=== PATIENT | female | born 1940 | race Caucasian/White ===

== ENCOUNTER 2016-08-26 01:42 | Emergency (ER) | payer OTHER ==
[~2016-08-26] VITALS: Ht 162.6 cm; Wt 69.0 kg
[2016-08-26 01:54] VITALS: Ht 162.6 cm; Wt 69.0 kg
[2016-08-26] MEDS ORDERED: ONDANSETRON INJ 2 MG/ML 2 ML VIAL ONE (02:08)
--- NOTE | 2016-08-26 02:20 | EMERGENCY ROOM VISIT NOTE ---
History Report prepared by Sonja: Wood Mcneill Under the Supervision of: Dr. Anna Read D.O. First contact with patient: 01:59 Chief Complaint: ABDOMINAL PAIN Stated Complaint: STOMACH PAIN,VOMITING History of Present Illness The patient is a 75 year old female who presents to the Emergency Room with complaints of persistent and severe abdominal pain that began at 2330 tonight, 2.5 hours prior to arrival. The pain is localized to the left lower abdominal quadrant. The patient states that she began to vomit persistently at this time as well. She claims that she felt fine throughout the day today and did not eat any unusual foods. She has not had a bowel movement for the past couple of days , which is unusual for her. She does have a history of diverticulitis and irritable bowel syndrome. 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 A total of 10 systems reviewed and were otherwise negative. Past Medical & Surgical Medical Problems: (1) Diabetes (2) HTN (hypertension) Diabetes HTN (hypertension) Family History Diabetes mellitus Heart disease Hypertension Social History Smoking Status: Former Smoker Drug Use: none Marital Status: Housing Status: lives with significant other Occupation Status: retired Current/Historical Medications Scheduled Amlodipine (Norvasc), 5 MG PO DAILY Aspirin (Aspirin Ec), 81 MG PO DAILY Chlorthalidone (Hygroton), 25 MG PO DAILY Cholecalciferol (Vitamin D3), 1 TAB PO DAILY Esomeprazole Magnesium (Nexium), 40 MG PO DAILY Fenofibrate (Tricor), 160 MG PO DAILY Fish Oil ([place]-3), 4 CAP PO DAILY Lisinopril (Lisinopril), 40 MG PO DAILY Metformin Hcl (Glucophage), 500 MG PO BID Metoprolol Succ (Toprol Xl) (Toprol-Xl), 50 MG PO DAILY Multivitamin (Multivitamin), 1 TAB PO DAILY Pravastatin Sod (Pravastatin Sodium), 40 MG PO DAILY Sertraline (Zoloft), 50 MG PO DAILY Vitamin E (Vitamin E 400 Iu), 800 INTER.UNIT PO DAILY Scheduled PRN Gabapentin (Neurontin), 100 MG PO TID PRN for RESTLESS LEGS Allergies Coded Allergies: Etodolac (Verified Allergy, Severe, hives, 08/26/16) Iodinated Diagnostic Agents (Verified Allergy, Severe, anaphylaxis. stopped breathing, 08/26/16) Meloxicam (Verified Adverse Reaction, Intermediate, GI SYMPTOMS, 08/26/16) Physical Exam Vital Signs Date Time Temp Pulse Resp B/P (MAP) Pulse Ox O2 Delivery O2 Flow Rate FiO2 08/26/16 06:24 69 18 148/69 98 Room Air 08/26/16 03:55 36.6 67 18 157/72 99 Room Air 08/26/16 02:28 61 08/26/16 01:54 36.5 55 22 162/64 99 Room Air Physical Exam General: Patient is very uncomfortable on exam, vomiting. HEENT: Head - normocephalic and atraumatic Pupils are equal, round, and reactive to light. Extraocular eye muscles are intact, and sclera are anicteric. Nose - moist nasal mucosa without discharge. Mouth - moist buccal mucosa. Oropharynx is nonerythematous and there is no tonsillar exudate or edema noted. Neck: Supple; no JVD, nuchal rigidity, cervical lymphadenopathy. Heart: Regular rate and rhythm. There is a normal S1 and S2 with no murmurs, clicks, or gallops appreciated. Lungs: Clear to auscultation bilaterally with no wheezes, rales, or rhonchi. Abdomen: Soft, completely. There is diffuse abdominal pain with palpation, mostly in the LLQ and LUQ. nondistended, with good bowel sounds. There are no palpable pulsatile masses or hepatosplenomegaly. There is no guarding, rigidity , or rebound noted. Extremities: No evidence of cyanosis, clubbing, or edema. There are easily palpable peripheral pulses. Skin: warm and Diaphoretic with good turgor and no rashes. Medical Decision & Procedures ER Provider Diagnostic Interpretation: Radiology results as stated below per my review: OBSTRUCTION SERIES: No obvious free air, significant colonic fecal retention. No signs of bowel obstruction. CT ABDOMEN & PELVIS: Impression: There is a 2 mm calculus in the proximal left ureter causing minimal hydronephrosis and mild perinephric stranding. Additional Findings: Visualized lower thorax demonstrates dependent atelectasis. Gallstones without CT evidence of acute cholecystitis. The liver, spleen, pancreas, and adrenal glands are unremarkable. Calcifications are noted within the uterus, likely degenerating fibroids. No adnexal masses. The appendix is not optimally visualized. The stomach, small bowel, and colon are unremarkable. No free fluid. No free air. No acute osseous abnormality. Radiologist: Juvenal lFetcher MD. Laboratory Results 08/26/16 02:10 Red Blood Count 4.96, Mean Corpuscular Volume 81.0, Mean Corpuscular Hemoglobin 28.0, Mean Corpuscular Hemoglobin Concent 34.6, Mean Platelet Volume 9.9, Neutrophils (%) (Auto) 50.2, Lymphocytes (%) (Auto) 38.8, Monocytes (%) (Auto) 5.9, Eosinophils (%) (Auto) 4.7, Basophils (%) (Auto) 0.3, Neutrophils # (Auto) 3.59, Lymphocytes # (Auto) 2.78, Monocytes # (Auto) 0.42, Eosinophils # (Auto) 0.34, Basophils # (Auto) 0.02 08/26/16 02:10 Test 08/26/16 02:10 08/26/16 02:31 08/26/16 05:00 White Blood Count 7.16 K/uL (4.8-10.8) Red Blood Count 4.96 M/uL (4.2-5.4) Hemoglobin 13.9 g/dL (12.0-16.0) Hematocrit 40.2 % (37-47) Mean Corpuscular Volume 81.0 fL (80-100) Mean Corpuscular Hemoglobin 28.0 pg (25-34) Mean Corpuscular Hemoglobin Concent 34.6 g/dl (32-36) Platelet Count 206 K/uL (130-400) Mean Platelet Volume 9.9 fL (7.4-10.4) Neutrophils (%) (Auto) 50.2 % Lymphocytes (%) (Auto) 38.8 % Monocytes (%) (Auto) 5.9 % Eosinophils (%) (Auto) 4.7 % Basophils (%) (Auto) 0.3 % Neutrophils # (Auto) 3.59 K/uL (1.4-6.5) Lymphocytes # (Auto) 2.78 K/uL (1.2-3.4) Monocytes # (Auto) 0.42 K/uL (0.11-0.59) Eosinophils # (Auto) 0.34 K/uL (0-0.5) Basophils # (Auto) 0.02 K/uL (0-0.2) RDW Standard Deviation 38.1 fL (36.4-46.3) RDW Coefficient of Variation 12.9 % (11.5-14.5) Immature Granulocyte % (Auto) 0.1 % Immature Granulocyte # (Auto) 0.01 K/uL (0.00-0.02) Anion Gap 8.0 mmol/L (3-11) Est Creatinine Clear Calc Drug Dose 49.8 ml/min Estimated GFR () 68.0 Estimated GFR (Non- 58.7 BUN/Creatinine Ratio 31.5 (10-20) Calcium Level 11.3 mg/dl (8.5-10.1) Total Bilirubin 0.4 mg/dl (0.2-1) Aspartate Amino Transf (AST/SGOT) 25 U/L (15-37) Alanine Aminotransferase (ALT/SGPT) 47 U/L (12-78) Alkaline Phosphatase 49 U/L (45-117) Troponin I < 0.015 ng/ml (0-0.045) Total Protein 7.6 gm/dl (6.4-8.2) Albumin 4.3 gm/dl (3.4-5.0) Globulin 3.3 gm/dl (2.5-4.0) Albumin/Globulin Ratio 1.3 (0.9-2) Lipase 143 U/L (73-393) Bedside Lactic Acid Venous 1.42 mmol/L (0.90-1.70) Urine Color YELLOW Urine Appearance TURBID (CLEAR) Urine pH 7.0 (4.5-7.5) Urine Specific [place] 1.022 (1.000-1.030) Urine Protein TRACE (NEG) Urine Glucose (UA) NEG (NEG) Urine Ketones NEG (NEG) Urine Occult Blood 3+ (NEG) Urine Nitrite NEG (NEG) Urine Bilirubin NEG (NEG) Urine Urobilinogen NEG (NEG) Urine Leukocyte Esterase LARGE (NEG) Urine WBC (Auto) 10-30 /hpf (0-5) Urine RBC (Auto) >30 /hpf (0-4) Urine Hyaline Casts (Auto) 0 /lpf (0-5) Urine Epithelial Cells (Auto) >30 /lpf (0-5) Urine Bacteria (Auto) NEG (NEG) Urine Renal Epithelial Cells /lpf (0-5) Urine Crystals CALCIUM OXALATE (NONE Urine Pathogenic Casts /lpf (0) Laboratory results per my review. Medications Administered Medications (Trade) Dose Ordered Sig/[place] Route Start Time Stop Time Status Last Admin Dose Admin Ondansetron HCl (Zofran Inj) 4 mg STK-MED ONCE .ROUTE 08/26/16 02:08 08/26/16 02:09 DC 08/26/16 02:30 4 MG Hydromorphone HCl (Dilaudid Inj) 1 mg NOW STAT IV 08/26/16 02:25 08/26/16 02:26 DC 08/26/16 02:31 1 MG Hydromorphone HCl (Dilaudid Inj) 1 mg NOW STAT IV 08/26/16 03:19 08/26/16 03:21 DC 08/26/16 03:25 1 MG Ondansetron HCl (Zofran Inj) 4 mg NOW STAT IV 08/26/16 03:19 08/26/16 03:21 DC 08/26/16 03:25 4 MG Sodium Chloride 1,000 ml @ 999 mls/hr Q1H1M STAT IV 08/26/16 04:54 08/26/16 05:54 DC 08/26/16 04:54 999 MLS/HR Ondansetron HCl (Zofran Odt) 4 mg ONE ONCE PO 08/26/16 06:45 08/26/16 06:46 DC 08/26/16 06:45 4 MG Procedure Medications Ordered: Zofran, Dilaudid, Sodium Chloride. ECG Indication: abdominal pain Rate (beats per minute): 69 Rhythm: normal sinus Findings: no acute ischemic change, no ectopy, other (Biphasic T-wave laterally ) ED Course 0208: Past medical records reviewed. The patient was evaluated in room B10. A complete history and physical exam was performed. An IV lock was initiated and labs are drones above. 0208: Ordered Zofran 4 mg. 0225: Ordered Dilaudid 1 mg IV. 0256: The patient's lactic resulted at 1.42. 0319: The patient continued to complain of nausea and pain. I Ordered Zofran 4 mg IV, Dilaudid 1 mg IV. 0318: The nursing staff has informed me that the patient is having worsening pain and dry heaves at this time. 0354: I checked on the patient at this time. She just returned from CT and her nausea/pain are improved. 0454: Ordered Sodium Chloride 1000 mL @ 999 mL/hr IV. 0611: I reevaluated the patient at this time. She has had a slight increase in discomfort. I offered to order Toradol, but she has an allergy to Etodolac. I then offered Oxycodone, but she states it upsets her stomach. She would prefer to stay with Ibuprofen and follow up with an urologist soon. The patient will be discharged home. Medical Decision Blood Pressure Screening: Patient was found to have a slightly elevated blood pressure due to circumstances. I do not believe that the patient requires hypertension monitoring. I attest that I have personally reviewed the patient's current medication list. The patient is a 75 year old female who presents to the Emergency Department for abdominal pain and vomiting. Differential Diagnosis includes; Diverticulitis, kidney stone, perforated viscus , pancreatitis, constipation, small bowel, colonic obstruction. Urinalysis reveals: Yellow turbid urine, 3+ blood cells, large leukocyte esterase, 10-30 white blood cells, >30 red blood cells, high amount of calcium oxalate crystals. The patient presents with a sudden onset of left-sided abdominal pain. CT scan shows evidence of a left-sided ureteral stone with blood in the urine. Her pain was controlled with IV Dilaudid. The patient is visiting from [place]. She will be discharged home to follow-up with urology when she returns. Impression Primary Impression: Right ureteral calculus Scribe Attestation The scribe's documentation has been prepared under my direction and personally reviewed by me in its entirety. I confirm that the note above accurately reflects all work, treatment, procedures, and medical decision making performed by me. Departure Information Dispostion Home / Self-Care Referrals No Doctor, Assigned (PCP) Forms HOME CARE DOCUMENTATION FORM, IMPORTANT VISIT INFORMATION Patient Instructions My [facility] [employer] Additional Instructions Rest. Take plenty of clear liquids Use ibuprofen for pain. Follow up with Urology at home. Return to the ER if pain becomes unbearable
[2016-08-26 02:23] LABS: BASO % 0.3 %; BASO ABS # 0.02 K/uL (0-0.2); COMPLETE YES; EOS % 4.7 %; HEMATOCRIT 40.2 % (37-47); IG% 0.1 %; LYMPH % 38.8 %; LYMPH ABS # 2.78 K/uL (1.2-3.4); MEAN CORPUSCULAR HGB CONC 34.6 g/dl (32-36); MEAN PLATELET VOLUME 9.9 fL (7.4-10.4); MONO % 5.9 %; NEUT % 50.2 %; PLATELET COUNT 206 K/uL (130-400); RED BLOOD COUNT 4.96 M/uL (4.2-5.4); WHITE BLOOD COUNT 7.16 K/uL (4.8-10.8)
[2016-08-26] MEDS ORDERED: HYDROmorphone INJ 1 MG/ML SYR IV STA ×2 (02:25→03:19)
[2016-08-26 02:41] LABS: ALT/SGPT 47 U/L (12-78); AST/SGOT 25 U/L (15-37); BLOOD UREA NITROGEN 30 mg/dl (7-18); BUN/CREATININE RATIO 31.5 (10-20); CALCIUM 11.3 mg/dl (8.5-10.1); CARBON DIOXIDE 28 mmol/L (21-32); CHLORIDE 103 mmol/L (98-107); CREATININE 0.96 mg/dl (0.60-1.20); GLUCOSE 135 mg/dl (70-99); POTASSIUM 3.8 mmol/L (3.5-5.1); SODIUM 139 mmol/L (136-145)
[2016-08-26] MEDS ORDERED: METO50TA7 PO (02:41)
[2016-08-26] MEDS ORDERED: LSN40 PO (02:41)
[2016-08-26] MEDS ORDERED: HYG/25 PO (02:41)
[2016-08-26] MEDS ORDERED: AMLO-110 PO (02:41)
[2016-08-26] MEDS ORDERED: ASPI81TA28 PO (02:41)
[2016-08-26] MEDS ORDERED: CHOL1000 PO (02:41)
[2016-08-26] MEDS ORDERED: SERT50TA PO (02:41)
[2016-08-26] MEDS ORDERED: FENO160T PO (02:41)
[2016-08-26] MEDS ORDERED: MULT-506 PO (02:41)
[2016-08-26] MEDS ORDERED: OMEG10007 PO (02:41)
[2016-08-26] MEDS ORDERED: VITA400C3 PO (02:41)
[2016-08-26] MEDS ORDERED: NXM/40 PO (02:41)
[2016-08-26] MEDS ORDERED: GLC/500 PO (02:41)
[2016-08-26] MEDS ORDERED: GABA1CAP PO (02:41)
[2016-08-26] MEDS ORDERED: PRVC/40 PO (02:41)
[2016-08-26 02:46] LABS: ALB/GLOB RATIO 1.3 (0.9-2); ALKALINE PHOSPHATASE 49 U/L (45-117)
[2016-08-26] MEDS ORDERED: ONDANSETRON INJ 2 MG/ML 2 ML VIAL IV STA (03:19)
[2016-08-26 03:55] VITALS: TEMP 36.6
[2016-08-26] MEDS ORDERED: SODIUM CHLORIDE 0.9% 1000ML 1,000 ML IV STA (04:54)
[2016-08-26 05:20] LABS: URINE APPEARANCE TURBID (CLEAR); URINE BILIRUBIN NEG (NEG); URINE COLOR YELLOW; URINE EPITHELIAL CELL AUTO >30 /lpf (0-5); URINE NITRITE NEG (NEG); URINE SPECIFIC GRAVITY 1.022 (1.000-1.030); UROBILINOGEN NEG (NEG)
[2016-08-26 05:24] LABS: MANUAL MICROSCOPIC REQUIRED? NO; REVIEW REQ? YES
[2016-08-26 06:24] VITALS: BP 148/69; PULSE 69; O2SAT 98
--- NOTE | 2016-08-26 06:30 | DIAGNOSTIC IMAGING REPORT ---
ABDOMEN 2VIEW W/PA CHEST RTN CLINICAL HISTORY: eval for free air or sob pain COMPARISON STUDY: No previous studies for comparison. FINDINGS: Increased fecal load throughout the colon consistent with component of fecal stasis. No evidence for fecal impaction. Heart is top normal in terms of size. Diaphragms smooth. Lungs are clear. IMPRESSION: 1. Negative chest. 2. Increased fecal load throughout the colon consistent with fecal stasis Electronically signed by: Toi Valentino M.D. 08/26/2016 6:28 AM Dictated Date/Time: 08/26/2016 6:28 AM
[2016-08-26] MEDS ORDERED: ONDANSETRON 4MG OD TAB PO ONE (06:45)
--- NOTE | 2016-08-26 07:24 | DIAGNOSTIC IMAGING REPORT ---
CT SCAN OF THE ABDOMEN AND PELVIS WITHOUT IV CONTRAST CLINICAL HISTORY: Left flank pain. Vomiting. COMPARISON STUDY: Abdominal radiographs dated 08/26/2016. TECHNIQUE: CT scan of the abdomen and pelvis is performed from the lung bases to the proximal femora. Images are reviewed in the axial, sagittal, and coronal planes. IV contrast was not administered for this examination as per the referring clinician. Automated dose control exposure was utilized. CT DOSE: 328.62 mGy.cm FINDINGS: Lung bases: The heart is enlarged and without pericardial effusion. The lung bases are clear noting dependent atelectasis. There is a small hiatal hernia. Liver: The unenhanced liver is enlarged, measuring 21.1 cm in length. The liver demonstrates diffusely diminished attenuation consistent with hepatic steatosis. Fatty sparing is seen adjacent to gallbladder fossa. There is no intrahepatic biliary ductal dilatation. A 2.6 cm cyst is noted in the dome of the liver. Gallbladder: There are small calcified gallstones. Spleen: Normal in size and attenuation. Pancreas: The unenhanced pancreas is grossly unremarkable. Adrenal glands: Unremarkable. Kidneys: The unenhanced kidneys demonstrate cortical atrophy. There is a 3 mm obstructing calculus in the left proximal ureter seen on image #183. This is located at the level of L2-L3 and causes mild to moderate left-sided hydronephrosis. There is associated left-sided perinephric stranding and trace fluid. No additional calculi are identified in either kidney. There is no right-sided hydronephrosis. There is no evidence of contour deforming renal mass lesion. Abdominal vasculature: The abdominal aorta is normal in course and caliber noting moderate atherosclerotic calcification. Bowel: The small bowel and colon are normal in course and caliber. There is moderate colonic fecal retention. The appendix is well-visualized and normal. Peritoneum: There is no intraperitoneal free air or abdominal ascites. Lymphadenopathy: None. Pelvic viscera: The bladder is normal as visualized. There are calcified uterine fibroids. No adnexal lesion is seen. Skeletal structures: The Skeletal structures are osteopenic. There is mild to moderate lumbosacral spondylosis. No lytic or blastic lesions are seen. IMPRESSION: 1. There is a 3 mm obstructing calculus in the left proximal ureter. This causes mild to moderate left-sided hydronephrosis. 2. No additional renal calculi are seen either kidney. 3. Hepatomegaly and hepatic steatosis. 4. Fibroid uterus. 5. Cholelithiasis. 6. Mild cardiomegaly. 7. Additional findings as above. Electronically signed by: Rahul Lowry M.D. 08/26/2016 7:23 AM Dictated Date/Time: 08/26/2016 7:17 AM
== END 2016-08-26 06:47 | disposition home or self-care (01) ==
LOC: C.EDB 01:43
DX: N20.1 Calculus of ureter (principal); R11.0 Nausea; I10 Essential (primary) hypertension; E11.9 Type 2 diabetes mellitus without complications; Z79.82 Long term (current) use of aspirin; Z79.84 Long term (current) use of oral hypoglycemic drugs; Z79.899 Other long term (current) drug therapy; Z88.8 Allergy status to other drugs, medicaments and biological substances; Z87.891 Personal history of nicotine dependence; Z83.3 Family history of diabetes mellitus; Z82.49 Family history of ischemic heart disease and other diseases of the circulatory system